=== PATIENT | male | born 1950 | race Caucasian/White ===

== ENCOUNTER 2023-11-26 06:16 | Day surgery (SDC) | payer OTHER, SELFPAY ==
[2023-11-23 12:42] VITALS: BMI 22.1
[2023-11-26] VITALS (12 sets, daily range): BP systolic 111–124; BP diastolic 55–78; BMI 22.1
[2023-11-26] MEDS: TYLENOL 1000 MG PO (11:26)
--- NOTE | 2023-11-26 12:13 | W.SUR.PREOP ---
Pre-Operative Surgical Note
-
I have examined this patient prior to the performance of the scheduled procedure.
The patient's condition is unchanged from the time of the current History and
Physical and the patient is able to undergo the scheduled procedure.
--- NOTE | 2023-11-26 14:38 | W.IMMPOSTOP ---
Surgical Immed Post Op Note
-
Primary Surgeon: Roman Ramey MD
Assisting Surgeon: None
Pre-op Diagnosis: Bilateral inguinal hernias
Post-op Diagnosis: Same
Procedure Performed: Laparoscopic bilateral inguinal hernia repair with mesh (TEP approach)
Anesthesia Type: General
Specimen / Cultures: None
Estimated Blood Loss: 7 cc
Complications: None
Operative Findings: The patient had a right direct inguinal hernia and a small left indirect hernia. No cord lipomas bilaterally. Floor reinforced with bilateral large Bard 3D max standard weight polypropylene mesh. A small rent in the peritoneum
on the right side was made intentionally to help dissect out the hernia and confirmed no bowel contents inside. This rent was closed with a 0 PDS Endoloop. We did a diagnostic lap at the end of the procedure to confirm no remaining rents in the
peritoneum and that our mesh laid appropriately.
--- NOTE | 2023-11-26 14:45 | OR.RPT ---
Operative Report
Operative Report
Patient Name: Anjum Gutierrez
: 1950
Date of Operation: 11/26/2023
Preoperative Diagnosis: Reducible Inguinal hernia, bilateral
Postoperative Diagnosis: Same
Procedure(s):
Laparoscopic bilateral inguinal Hernia Repair with mesh, (TEP approach)
Surgeon(s):
Dr. Ramey
[employer](s):
Carlos Kay MD PGY1
Anesthesia: General
Estimated Blood Loss: 7 cc
Urine Output: None
Drains/Lines/Implants: Large 3D Max Bard Soft Mesh
Specimens: None
Indication for surgery: The patient has a history of groin pain and noted on exam to have Bilateral Inguinal Hernia(s). Following review of therapeutic options they has elected to undergo a minimally invasive repair.
Operative Findings: The patient had a right direct inguinal hernia and a small left indirect hernia. No cord lipomas bilaterally. Floor reinforced with bilateral large Bard 3D max standard weight polypropylene mesh. A small rent in the peritoneum
on the right side was made intentionally to help dissect out the hernia and confirmed no bowel contents inside. This rent was closed with a 0 PDS Endoloop. We did a diagnostic lap at the end of the procedure to confirm no remaining rents in the
peritoneum and that our mesh laid appropriately.
Details of the operation:
After inducing general anesthesia and endotracheal intubation, the patient was prepped and draped in the supine position with both arms tucked. After infiltration with 0.25% Marcaine, a right periumbilical incision was made. Dissection was carried
down to the anterior sheath which was incised and the rectus muscle retracted laterally. An origin balloon was then inserted in through the posterior portion of the rectus into the preperitoneal space. This was insufflated under direct vision and
blunt dissection was therefore achieved in the preperitoneal space. The balloon was then removed and a 12mm Balloon trocar was placed. Two 5-mm ports were also placed in the midline below the camera port. Blunt dissection was used to dissect the
myopectineal orifice with care not to injure the epigastric vessels, gonadals or spermatic cord. Blunt dissection was used to identify the direct, indirect, and femoral spaces.
Right side:
The cord was inspected and an indirect hernia sac was not identified.
There was no cord lipoma.
There was a weakness in the direct space floor ultimately containing preperitoneal fat, however this was not initially readily apparent. The rent was made purposely in the peritoneum and used to confirm no intra-abdominal bowel/viscera was in the
direct hernia sac. This fat was inverted into its appropriate anatomic position. The right was closed with a 0 PDS Endoloop
There was no femoral herniation.
A large 3D max mesh was then placed into position and positioned into the appropriate area to cover all 3 defects and secured to Benjamin's ligament with 2 absorbable tacks.
Left side:
The cord was inspected and an indirect hernia sac was noted and reduced.
There was no cord lipoma.
There was no weakness in the direct space floor.
There was no femoral herniation.
A large 3D max mesh was then placed into position and positioned into the appropriate area to cover all 3 defects and secured to Benjamin's ligament with 2 absorbable tacks.
The area was then completely infiltrated with 20 cc of Marcaine without epinephrine (0.25%). The insufflation was slowly decreased and the mesh was assured to be in proper position with desufflation. Our ports were removed, and at her umbilical
site the posterior sheath was grasped between 2 forceps and divided. The Camp trocar was then placed transabdominally and insufflation was established. We then inspected our repair from a transabdominal there was no additional rents in the mesh
could be seen very well opposed with no folds at the corners. The abdomen was desufflated and the Melissa trocar site was also closed with 0 PDS suture in a [id number] fashion in layers. The skin sites were all then closed with running
subcuticular 4-0 Monocryl suture followed by dermabond. Inspection of the scrotum revealed both testes to be in position. The patient returned to the recovery room in stable condition. Sponge and instrument counts were correct. No specimen sent
to pathology
I was the attending physician and performed the procedure with assistance from the resident above. I was present for all portions of the case
Roman Ramey MD
== END 2023-11-26 17:35 | disposition home or self-care (01) ==
LOC: SDS 06:16
PROVIDERS: ATTENDING PHYSICIAN Surgery; FAMILY PHYSICIAN Student in an Organized Health Care Education/Training Program
PROC: 0YUA0JZ Supplement Bilateral Inguinal Region with Synthetic Substitute, Open Approach (ICD-10-PCS; 2023-11-26)
PROC: 0YJA4ZZ Inspection of Bilateral Inguinal Region, Percutaneous Endoscopic Approach (ICD-10-PCS; 2023-11-26)
DX: K40.20 Bilateral inguinal hernia, without obstruction or gangrene, not specified as recurrent (principal)
CPT/HCPCS: 49650; 36415; 93005; C1781

== ENCOUNTER → 2024-01-29 10:27 | Outpatient (REF) | payer OTHER, SELFPAY | LOC: HWRAD 10:27 | PROVIDERS: ATTENDING PHYSICIAN Family Medicine; FAMILY PHYSICIAN Student in an Organized Health Care Education/Training Program | DX: S20.219A Contusion of unspecified front wall of thorax, initial encounter (principal) | CPT/HCPCS: 71111; 71120 ==

== ENCOUNTER → 2024-05-06 12:51 | Outpatient (REF) | payer OTHER, SELFPAY ==
[2024-05-06 14:23] LABS: Blood Urea Nitrogen 19 mg/dl (9-20); Calcium 9.7 mg/dl (8.4-10.2); Carbon Dioxide 32 mmol/L (22-30); Chloride 100 mmol/L (98-107); Glucose 93 mg/dl (70-99); Potassium 4.9 mmol/L (3.5-5.1); Sodium 139 mmol/L (135-145); eGFR > 60.00
== END ==
LOC: RAD 12:51
PROVIDERS: ATTENDING PHYSICIAN Family Medicine; REFERRING PHYSICIAN Orthopaedic Surgery Adult Reconstructive Orthopaedic Surgery
DX: R06.02 Shortness of breath (principal); Z98.890 Other specified postprocedural states
CPT/HCPCS: 36415; 71275; 80048; Q9967

== ENCOUNTER → 2024-05-19 13:04 | Outpatient (REF) | payer OTHER, SELFPAY | LOC: RAD 13:04 | PROVIDERS: ATTENDING PHYSICIAN Internal Medicine Critical Care Medicine; FAMILY PHYSICIAN Family Medicine; REFERRING PHYSICIAN Student in an Organized Health Care Education/Training Program | DX: I28.1 Aneurysm of pulmonary artery (principal) | CPT/HCPCS: 36415; 71046; 78582; 83516; 86038; 86141; A9540; A9567 ==

== ENCOUNTER → 2025-01-10 12:55 | Outpatient (REF) | payer OTHER, SELFPAY | LOC: RCS 12:55 | PROVIDERS: ATTENDING PHYSICIAN Internal Medicine Cardiovascular Disease; FAMILY PHYSICIAN Student in an Organized Health Care Education/Training Program | DX: R06.09 Other forms of dyspnea (principal); R53.83 Other fatigue | CPT/HCPCS: 93306 ==

== ENCOUNTER → 2025-01-18 11:17 | Outpatient (REF) | payer OTHER, SELFPAY | LOC: RCS 11:17 | PROVIDERS: ATTENDING PHYSICIAN Internal Medicine Cardiovascular Disease; FAMILY PHYSICIAN Student in an Organized Health Care Education/Training Program | DX: R06.09 Other forms of dyspnea (principal); R53.83 Other fatigue | CPT/HCPCS: 78452; 93017; A9500 ==

== ENCOUNTER → 2025-01-19 14:02 | Outpatient (REF) | payer OTHER, SELFPAY | LOC: PAVMRI 14:02 | PROVIDERS: ATTENDING PHYSICIAN Specialist; FAMILY PHYSICIAN Student in an Organized Health Care Education/Training Program | DX: G95.9 Disease of spinal cord, unspecified (principal) | CPT/HCPCS: 72156; A9575 ==